=== PATIENT | female | born 1945 ===

== ENCOUNTER 2023-09-21 16:30 | Emergency (ER) | payer OTHER, SELFPAY ==
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
[2023-09-21 17:54] VITALS: BP 140/76; PULSE 67; RESP 16; TEMP 36.3; O2SAT 98; BMI 30.6
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
[2023-09-21 19:30] VITALS: BP 143/57; PULSE 64; RESP 18; O2SAT 96
[2023-09-21] MEDS: Cyclobenzaprine HCl 5 MG TABLET PO (19:43)
[2023-09-21 21:40] VITALS: BP 139/74; PULSE 60; RESP 16; TEMP 36.3; O2SAT 98
[2023-09-21 21:41] VITALS: BP 139/74; PULSE 60; RESP 16; TEMP 36.3; O2SAT 98
== END 2023-09-21 21:41 | disposition home or self-care (01) ==
PROVIDERS: Emergency Provider Emergency Medicine
DX: S16.1XXA Strain of muscle, fascia and tendon at neck level, initial encounter (principal); R07.81 Pleurodynia; V89.2XXA Person injured in unspecified motor-vehicle accident, traffic, initial encounter; Y93.9 Activity, unspecified; Y92.410 Unspecified street and highway as the place of occurrence of the external cause; Y99.9 Unspecified external cause status
CPT/HCPCS: 70450; 71101; 72125; 99284